=== PATIENT | female | born 1985 | race Caucasian/White ===

== ENCOUNTER 2023-01-07 13:18 | Outpatient (CLI) | payer OTHER | END 2023-01-07 13:30 | disposition home or self-care (01) | LOC: RAD 13:18 | PROVIDERS: ATTEND Internal Medicine | DX: M19.90 Unspecified osteoarthritis, unspecified site (principal) ==

== ENCOUNTER 2024-02-26 09:10 | Outpatient (CLI) | payer OTHER | END 2024-02-26 09:19 | disposition home or self-care (01) | LOC: SONOGRAMA 09:10 | DX: R10.84 Generalized abdominal pain (principal) ==

== ENCOUNTER 2024-05-23 09:31 | Outpatient (CLI) | payer OTHER | END 2024-05-23 09:53 | disposition home or self-care (01) | LOC: MAMO-SONO 09:31 | PROVIDERS: ATTEND Obstetrics & Gynecology Maternal & Fetal Medicine | DX: N63 Unspecified lump in breast (principal); Z12.31 Encounter for screening mammogram for malignant neoplasm of breast; N64.4 Mastodynia; N60.11 Diffuse cystic mastopathy of right breast ==